=== PATIENT | male | born 1955 | race Caucasian/White ===

== ENCOUNTER 2017-10-30 14:54 | Emergency (ER) | payer BC ==
[2017-10-30 16:50] VITALS: BP 131/63
--- NOTE | 2017-10-30 17:36 | ED ---
Evens Chatterjee Jennifer, scribed for Jasmeet Martínez MD on 10/30/17 at 1615 . Lower Extremity - HPI Summary HPI Summary: The patient is a 62 year old male who presents with bleeding from the right big toe after a hike today. The patient has neuropathy in the foot and didnt feel it happening, but noticed his toe was bleeding after taking his shoes off. There is a large blister on the bottom of the big right toe. - History of Current Complaint Chief Complaint: EDExtremityLower Stated Complaint: RT BIG TOE INJURY Time Seen by Provider: 10/30/17 16:07 Hx Obtained From: Patient Mechanism Of Injury: Other - Hiking Onset of Pain: Immediate Onset/Duration: Hours Severity Initially: Mild Severity Currently: Mild Pain Intensity: 0 Pain Scale Used: 0-10 Numeric Timing: Constant Location: Is Discrete @ - right big toe Character Of Pain: Unable To Describe - Bleeding Associated Signs And Symptoms: Positive: Other - Bleeding, blister on right big toe Aggravating Factor(s): Movement Alleviating Factor(s): Rest Able to Bear Weight: Yes - Allergies/Home Medications Allergies/Adverse Reactions: Allergies Allergy/AdvReac Type Severity Reaction Status Date / Time No Known Allergies Allergy Verified 10/30/17 15:27 PMH/Surg Hx/FS Hx/Imm Hx Endocrine/Hematology History: Reports: Hx Diabetes Cardiovascular History: Denies: Hx Hypertension Opthamlomology History: Reports: Hx Contacts or Glasses Denies: Hx Legally Blind EENT History: Denies: Hx Deafness Infectious Disease History: No Infectious Disease History: Denies: Traveled Outside the [place] in Last 30 Days - Family History Known Family History: Negative: Renal Disease - Social History Hx Substance Use: No Substance Use Type: Reports: None Hx Tobacco Use: No Smoking Status (MU): Never Smoked Tobacco Review of Systems Negative: Fever Positive: Other - bleeding, blister of right big toe All Other Systems Reviewed And Are Negative: Yes Physical Exam - Summary Physical Exam Summary: Appearance: Well appearing, no pain distress Skin: warm, dry, reflects adequate perfusion Head/face: normal Eyes: EOMI, TA ENT: normal Neck: supple, non-tender Respiratory: CTA, breath sounds present Cardiovascular: RRR, pulses symmetrical Abdomen: non-tender, soft Bowel Sounds: present Musculoskeletal: normal, strength/ROM intact Extremities: large blistered area on big toe, ruptured blister with loose skin Neuro: normal, sensory motor intact, A&Ox3 Triage Information Reviewed: Yes Vital Signs On Initial Exam: Initial Vitals Temp Pulse Resp BP Pulse Ox 98.5 F 92 16 152/60 96 10/30/17 15:23 10/30/17 15:23 10/30/17 15:23 10/30/17 15:23 10/30/17 15:23 Vital Signs Reviewed: Yes Procedures - Laceration/Wound Repair Wound care of debridement of tissue Location: lower extremity - Right big toe Laceration/Wound Explored: clean Debridement: Sharp debridement of blister area, unfooring of blister, dry dressing built to offload the plantar great toe on the right Diagnostics - Vital Signs Vital Signs Temp Pulse Resp BP Pulse Ox 10/30/17 15:23 98.5 F 92 16 152/60 96 - Laboratory Lab Statement: Any lab studies that have been ordered have been reviewed, and results considered in the medical decision making process. Lower Extremity Course/Dx - Course Course Of Treatment: Debrided area of blister. No deeper wounds. Shoes ill fitting. Suggest prompt f/u with residential living assistant for recheck and for shoe orthotic. - Diagnoses Provider Diagnoses: Insulin dependent diabetes mellitus, Blister of toe Discharge - Sign-Out/Discharge Documenting (check all that apply): Discharge/Admit/Transfer - Discharge Plan Condition: Improved Disposition: HOME Patient Education Materials: Blister (ED) Referrals: Non Staff,Doctor [Primary Care Provider] - Additional Instructions: Call your residential living assistant today to help arrange podiatric care within the next several days. Do toe checks 2-3 times daily. Off load this toe for about 1 week. Keep clean and dry. Return to an ER with sign of infection, worse or other concerns. - Billing Disposition and Condition Condition: IMPROVED Disposition: HOME The documentation as recorded by the Evens sifuentes Jennifer accurately reflects the service I personally performed and the decisions made by me, Jasmeet Martínez MD.
== END 2017-10-30 16:49 | disposition home or self-care (01) ==
LOC: ED 14:54
DX: S90.421A Blister (nonthermal), right great toe, initial encounter (principal); E11.9 Type 2 diabetes mellitus without complications; X58.XXXA Exposure to other specified factors, initial encounter; Y92.9 Unspecified place or not applicable
CPT/HCPCS: 99282